=== PATIENT | male | born 1980 | race Caucasian/White ===

== ENCOUNTER 2018-03-25 17:58 | Emergency (ER) | payer MEDICAID, OTHER ==
[2018-03-25 18:18] VITALS: TEMP 98.8; BMI 26.4
--- NOTE | 2018-03-25 18:22 | ED.PDOC ---
General <LUZMA BERUMEN - Last Filed: 03/25/18 19:57> Stated Complaint: heroin abuse Time Seen by Physician: 18:19 (moved from [place] reported of being on heroin x 5 yrs ) Mode of Arrival: Walk-In Information Source: Patient Exam Limitations: No limitations Nursing and Triage Documentation Reviewed and Agree: Yes Does patient meet sepsis criteria?: No If yes, has appropriate treatment been initiated?: No System Inflammatory Response Syndrome: Not Applicable <MARIYA FAIRCHILD - Last Filed: 03/26/18 12:27> ED Provider: Dr. MARIYA FAIRCHILD Chief Complaint: Alcohol/Substance Withdrawal Sepsis Protocol: For patient's 13 years and over: Temp is 96.8 and below OR 101 and greater Pulse >90 BPM Resp >20/minute Acutely Altered Mental Status Are patient's symptoms suggestive of a new infection, such as: -Pneumonia -Skin, Soft Tissue -Endocarditis -UTI -Bone, Joint Infection -Implantable Device -Acute Abdominal Infection -Wound Infection -Meningitis -Blood Stream Catheter Infection -Unknown Psychological Complaint Exam - Overdose/Toxic Exposure Complaint/Exam Ingestion Occurred: snorted it about 2 days ago feels anxious would like to stop the abuse Witnessed: No Ingestion: Other (see above) Character: Reports: Inhalation Aggravating: Reports: None Treatment Prior To Arrival: None Associated Signs And Symptoms: Reports: Agitation, Diaphoresis. Denies: AMS, Seizure, Chest pain, Palpitations, Cyanosis, Short of air, Cough, Vomiting, Drooling, Intentional ingestion, Unintentional overdose, Pediatric ingestion Related History: Reports: Similar episode Completed Suicide Risk Factors: None Gag Reflex Present: Yes Inability To Swallow Present: No Drooling Present: No Glascow Coma Scale (see protocol): 15 Miosis Present: No Mydriasis Present: No Nystagmus Present: No Speech: Present: Normal findings Aphasia: Present: None Gait: Present: Normal Patient Uncooperative For Exam: Yes Mood: Present: Depressed, Agitated, Anxious Appearance: Present: Clean Thought Process: Present: Logical Insight: Present: Good Memory: Intact Judgement: Normal Danger To Others: No Patient Medically Stable For: Psych evaluation Differential Diagnoses: Anxiety Quality Indicator For Non-Traumatic Chest Pain/Syncope: EKG Performed <MARIYA FAIRCHILD - Last Filed: 03/26/18 12:27> Review of Systems - Review Of Systems Constitutional: Reports: Chills, Malaise Eyes: Reports: No symptoms Ears, Nose, Mouth, Throat: Reports: No symptoms Respiratory: Reports: No symptoms Cardiac: Reports: No symptoms GI: Reports: No symptoms : Reports: No symptoms Musculoskeletal: Reports: No symptoms Skin: Reports: No symptoms Neurological: Reports: No symptoms Endocrine: Reports: No symptoms Hematologic/Lymphatic: Reports: No symptoms All Other Systems: Reviewed and Negative <MARIYA FAIRCHILD - Last Filed: 03/26/18 12:27> Past Medical History - Past Medical History Previously Healthy: Yes Endocrine: Reports: None Cardiovascular: Reports: None Respiratory: Reports: None Hematological: Reports: None Gastrointestinal: Reports: None Genitourinary: Reports: None Neuro/Psych: Reports: None Musculoskeletal: Reports: None Cancer: Reports: None - Surgical History General Surgical History: Reports: None - Family History Family History: Reports: None - Social History Smoking Status: Current every day smoker, Heavy tobacco smoker Hx Substance Use: Yes (heroin) Alcohol Screening: None <MARIYA FAIRCHILD - Last Filed: 03/26/18 12:27> Physical Exam - Physical Exam Appearance: Well-appearing, No pain distress, Well-nourished Eyes: REAL, EOMI, Conjunctiva clear ENT: Dry mucosa Respiratory: Airway patent, Breath sounds clear, Breath sounds equal, Respirations nonlabored Cardiovascular: RRR, Pulses normal, No rub, No murmur GI/: Soft, Nontender, No masses, Bowel sounds normal, No Organomegaly Musculoskeletal: Normal strength, ROM intact, No edema, No calf tenderness Skin: Warm, Dry, Normal color Neurological: Sensation intact, Motor intact, Reflexes intact, Cranial nerves intact, Alert, Oriented Psychiatric: Affect appropriate, Mood appropriate <MARIYA FAIRCHILD - Last Filed: 03/26/18 12:27> Critical Care Note <LUZMA BERUMEN - Last Filed: 03/25/18 19:57> - Critical Care Note Total Time (mins): 0 <MARIYA FAIRCHILD - Last Filed: 03/26/18 12:27> - Critical Care Note Comments: Patient offered admission but refused. He states that he wants to go to a Suboxone clinic will provide contact information to that effect. (LUZMA BERUMEN) Course - Course Hematology/Chemistry: 03/25/18 18:41 03/25/18 18:41 <LUZMA BERUMEN - Last Filed: 03/25/18 19:57> - Course Hematology/Chemistry: 03/25/18 18:41 03/25/18 18:41 <MARIYA FAIRCHILD - Last Filed: 03/26/18 12:27> - Course Orders, Labs, Meds: Lab Review 03/25/18 03/25/18 18:41 18:41 WBC 10.57 H RBC 4.79 Hgb 14.6 Hct 43.0 MCV 89.8 MCH 30.5 MCHC 34.0 RDW Coeff of Linda 12.3 Plt Count 412 Immature Gran % (Auto) 0.3 Neut % (Auto) 63.8 Lymph % (Auto) 24.4 [place] % (Auto) 10.1 H Eos % (Auto) 1.2 Baso % (Auto) 0.2 Immature Gran # (Auto) 0.0 Neut # (Auto) 6.7 Lymph # (Auto) 2.6 [place] # (Auto) 1.1 Eos # (Auto) 0.1 Baso # (Auto) 0.0 Sodium 139.6 Potassium 3.94 Chloride 108.1 H Carbon Dioxide 27.6 Anion Gap 7.84 BUN 11.6 Creatinine 1.06 Estimated GFR (MDRD) 79.00 BUN/Creatinine Ratio 10.94 Glucose 85.7 Calcium 9.20 Total Bilirubin 0.27 AST 39.1 ALT 22.2 Alkaline Phosphatase 57.5 Total Protein 7.08 Albumin 4.03 Globulin 3.05 Albumin/Globulin Ratio 1.32 Salicylate Level mg/dL < 1.00 Acetaminophen < 10.0 L Plasma/Serum Alcohol < 10.0 Orders Category Date Time Status EKG-(ED ONLY) Stat CARDIO 03/25/18 18:28 Completed ED GR[employer] APPLIED ONCE EMERGENCY 03/25/18 18:28 Active ACETAMINOPHEN Stat LAB 03/25/18 18:41 Completed BLOOD ALCOHOL Stat LAB 03/25/18 18:41 Completed CBC W/ AUTO DIFF Stat LAB 03/25/18 18:41 Completed COMPREHENSIVE METABOLIC PANEL Stat LAB 03/25/18 18:41 Completed SALICYLATE Stat LAB 03/25/18 18:41 Completed Diazepam [Valium] MEDS 03/25/18 18:29 Discontinued 5 mg PO ONCE STA Ondansetron HCl/Pf [Zofran 4 mg/2 ml] MEDS 03/25/18 18:31 Discontinued 4 mg IVP ONCE STA Sodium Chloride 0.9% [Sodium Chloride] 1,000 ml MEDS 03/25/18 18:28 Discontinued IV BOLUS Medications Discontinued Medications Generic Name Dose Route Start Last Admin Trade Name Tevinq PRN Reason Stop Dose Admin Diazepam 5 mg 03/25/18 18:29 03/25/18 19:07 Valium PO 03/25/18 18:30 5 mg ONCE STA Administration Sodium Chloride 1,000 mls @ 1,000 mls/hr 03/25/18 18:28 03/25/18 19:06 Sodium Chloride IV 03/25/18 19:27 1,000 mls/hr BOLUS STA Administration Ondansetron HCl 4 mg 03/25/18 18:31 03/25/18 19:08 Zofran 4 Mg/2 Ml IVP 03/25/18 18:32 4 mg ONCE STA Administration Vital Signs: Temp Pulse Resp BP Pulse Ox 03/25/18 20:06 85 15 134/69 03/25/18 19:36 85 24 145/74 H 03/25/18 17:59 98.8 F 68 20 145/80 H 98 Departure - Departure Time of Disposition: 19:59 IPMP verified?: Yes <LUZMA BERUMEN - Last Filed: 03/25/18 19:57> - Departure Pt referred to PMD for follow-up: Yes IPMP verified?: No <MARIYA FAIRCHILD - Last Filed: 03/26/18 12:27> - Departure Disposition: HOME SELF-CARE Discharge Problem: Heroin abuse Instructions: Opioid Withdrawal (ED), Narcotic Withdrawal (ED) Condition: Good Additional Instructions: call one of the suboxone clinic for help in the morning. Take Medications as needed for anxiety and nausea. Prescriptions: Buspirone HCl 10 mg PO TID PRN #30 tablet PRN Reason: Anxiety Ondansetron HCl [Zofran Tab] 4 mg PO Q8H PRN #14 tablet PRN Reason: Nausea / Vomiting Allergies/Adverse Reactions: Allergies amoxicillin [Amoxicillin] Adverse Reaction (Verified 03/25/18 18:07) codeine Adverse Reaction (Verified 03/25/18 18:07) Penicillins Adverse Reaction (Verified 03/25/18 18:07) Home Medications: Ambulatory Orders Amitriptyline HCl [Elavil] 25 mg PO DAILY 03/25/18 Amitriptyline HCl [Elavil] 75 mg PO BEDTIME 03/25/18 Buspirone HCl 10 mg PO TID PRN #30 tablet 03/25/18 Ondansetron HCl [Zofran Tab] 4 mg PO DIRECTED PRN 03/25/18 Ondansetron HCl [Zofran Tab] 4 mg PO Q8H PRN #14 tablet 03/25/18
[2018-03-25] MEDS ORDERED: SODIUM CHLORIDE 1,000 ML IV STA (18:28)
[2018-03-25] MEDS ORDERED: VALIUM PO STA (18:29)
[2018-03-25] MEDS ORDERED: ZOFRAN 4 MG/2 ML IVP STA (18:31)
[2018-03-25 20:07] VITALS: BP 134/69
== END 2018-03-25 20:19 | disposition home or self-care (01) ==
LOC: ED 17:58
DX: F11.23 Opioid dependence with withdrawal (principal); F41.9 Anxiety disorder, unspecified; R11.0 Nausea; F17.210 Nicotine dependence, cigarettes, uncomplicated
CPT/HCPCS: 36415; 80053; 80307; 85025; 93005; 93010; 96361; 96374; 99283